=== PATIENT | female | born 2000 | race Caucasian/White ===

== ENCOUNTER → 2024-02-24 | Emergency (ER) | payer BC ==
[~2024-02-24] VITALS: Ht 165.1 cm; Wt 72.6 kg
[~2024-02-24] MED LIST: ALDACTONE25 MG PO; BENZONATATE200 M1 PO; GLYCOPYRROLATE2 MG; LEVALBUTER0.63 MG/3 IH; MEDROLPACK PO; MONODOX100 MG; MONTELUKAST SODI4 M1 PO; PEPCID AC20 MG PO; PROAIR RESPICL90 MCG IH
== END | disposition left against medical advice (07) ==
LOC: ER 21:59
DX: Z53.21 Procedure and treatment not carried out due to patient leaving prior to being seen by health care provider (principal)

== ENCOUNTER 2024-02-25 08:30 | Emergency (ER) | payer OTHER ==
[~2024-02-25] VITALS: Ht 165.1 cm; Wt 74.8 kg
[~2024-02-25 08:30] MED LIST changes: -BENZONATATE200 M1 PO; -LEVALBUTER0.63 MG/3 IH; -MEDROLPACK PO; -MONTELUKAST SODI4 M1 PO; -PEPCID AC20 MG PO; -PROAIR RESPICL90 MCG IH
[2024-02-25] MEDS ORDERED: GUAIFENESIN 200 MG/10 ML BLIST.PACK PO ONE (09:00)
[2024-02-25] MEDS ORDERED: LEVALBUTEROL HCL 1.25 MG/3 ML SOLUTION IH ONE (09:00)
[2024-02-25] MEDS ORDERED: METHYLPREDNISOLONE SOD SUCC 40 MG VIAL IM ONE (09:00)
[2024-02-25] MEDS ORDERED: CEFTRIAXONE SODIUM 1,000 MG VIAL IM ONE (09:00)
[2024-02-25] MEDS ORDERED: IPRATROPIUM BROMIDE 0.5 MG/2.5 ML AMPUL.NEB IH ONE (09:00)
[2024-02-25 10:25] LABS: HEMATOCRIT 40.1 % (36.0-45.00); HEMOGLOBIN 13.8 g/dL (12.0-15.00); MEAN CELL VOLUME 91.3 fL (80.00-100.00); MEAN CORPUSCULAR HEMOGLOBIN 31.3 pg (27.00-32.0); MEAN CORPUSCULAR HGB CONC 34.3 g/dl (32.0-36.0); PLATELET COUNT 204 K/uL (150-450)
[2024-02-25] MEDS ORDERED: MAGNESIUM SULFATE IN WATER 2 GM/50 ML PIGGYBAG IV ONE (12:15)
[2024-02-25] MEDS ORDERED: LEVALBUTEROL HCL 0.63 MG/3 ML SOLUTION IH STA (13:34)
[2024-02-25] MEDS ORDERED: MEDROLPACK PO (13:42)
[2024-02-25] MEDS ORDERED: PEPCID AC20 MG PO (13:42)
[2024-02-25] MEDS ORDERED: MONTELUKAST SODI4 M1 PO (13:42)
[2024-02-25] MEDS ORDERED: BENZONATATE200 M1 PO (13:42)
[2024-02-25] MEDS ORDERED: LEVALBUTER0.63 MG/3 IH (13:42)
[2024-02-25] MEDS ORDERED: PROAIR RESPICL90 MCG IH (13:42)
[2024-02-25 14:29] LABS: ABG PH 7.408 (7.35-7.45); ABG PO2 84.5 mmHg (80-100); ABG pCO2 38.2 mmHg (35-45); BASE EXCESS -0.8 mmol/l; SaO2 96.4 %
[2024-02-25 14:30] LABS: BICARBONATE 23.5 mmol/l (23-25); Tco2 24.7 mmol/l; o2 21 %
[2024-02-25 14:31] LABS: allen test SATISFACTORY; puncture site RADIAL RIGHT
== END 2024-02-25 15:01 | disposition home or self-care (01) ==
LOC: ER 08:32
PROVIDERS: General Practice
DX: J45.909 Unspecified asthma, uncomplicated (principal); R05.9 Cough, unspecified; Z20.822 Contact with and (suspected) exposure to COVID-19